=== PATIENT | female | born 1985 | race American Indian/Alaskan Native ===

== ENCOUNTER 2017-01-13 12:34 | Outpatient (CLI) | payer MEDICAID ==
[2017-01-13] MEDS ORDERED: LACTATED RINGERS 1,000 ML IV ONE (14:00)
== END 2017-01-13 14:12 | disposition home or self-care (01) ==
LOC: TRG 12:34
PROVIDERS: ATTEND Obstetrics & Gynecology
DX: Z34.93 Encounter for supervision of normal pregnancy, unspecified, third trimester (principal); Z3A.38 38 weeks gestation of pregnancy
CPT/HCPCS: 59025

== ENCOUNTER 2017-01-18 08:56 | Inpatient (IN) | payer MEDICAID ==
[2017-01-18] MEDS ORDERED: REGLAN IV ONE (09:19)
[2017-01-18] MEDS ORDERED: PEPCID IV ONE (09:19)
[2017-01-18] MEDS ORDERED: BICITRA PO ONE (09:19)
[2017-01-18] MEDS ORDERED: LACTATED RINGERS 1,000 ML IV SCH (10:00)
[2017-01-18] MEDS ORDERED: PITOCin/NS 20 UNIT/1000ML DRIP 20 UNITS/1,000 ML BAG IV SCH ×2 (10:00→17:00)
[2017-01-18] MEDS: LACTATED RINGERS 1,000 ML IV SCH ×3 (10:30→14:31)
[2017-01-18 10:49] LABS: Basophils % (Auto) 0.2 % (0.0-1.8); Eosinophils % (Auto) 0.3 % (0.0-4.3); Hematocrit 27.6 % (30.3-42.9); Hemoglobin 8.8 gm/dl (10.1-14.3); Mean Corpuscular HGB Conc 32 % (30-34); Mean Corpuscular Volume 74 fl (79-97); Platelet Count 182 K/mm3 (140-440); Red Blood Count 3.74 M/mm3 (3.65-5.03); White Blood Count 6.3 K/mm3 (4.5-11.0)
[2017-01-18 10:50] LABS: Mean Corpuscular Hemoglobin 24 pg (28-32); Red Cell Distribution Width 21.9 % (13.2-15.2)
[2017-01-18] MEDS ORDERED: BICITRA PO NR (11:00)
[2017-01-18] MEDS ORDERED: PEPCID IV NR (11:00)
[2017-01-18] MEDS ORDERED: REGLAN IV NR (11:00)
[2017-01-18] MEDS ORDERED: ANCEF/STERILE WATER 2 GM/20 ML 2 GM/20 ML SYRINGE IV NR (11:00)
--- NOTE | 2017-01-18 14:14 | Anesthesia Consultation ---
Anesthesia Consult and Med Hx Date of service: 01/18/17 - Airway Anesthetic Teeth Evaluation: Good ROM Head & Neck: Adequate Mental/Hyoid Distance: Adequate Mallampati Class: Class II Intubation Access Assessment: Probably Good - Pulmonary Exam CTA: Yes - Cardiac Exam Cardiac Exam: RRR - Pre-Operative Health Status ASA Pre-Surgery Classification: ASA2 Proposed Anesthetic Plan: Spinal (has had epidural/spinal on a previous c- section) - Pulmonary Hx Asthma: No COPD: No Hx Pneumonia: No - Cardiovascular System Hx Hypertension: No - Central Nervous System Hx Seizures: No Hx Psychiatric Problems: No - Endocrine Hx Renal Disease: No Hx End Stage Renal Disease: No Hx Hypothyroidism: No Hx Hyperthyroidism: No - Hematic Hx Anemia: No Hx Sickle Cell Disease: No - Other Systems Hx Alcohol Use: No - Additional Comments Anesthesia Medical History Comments: had syphillis in past - not on any drugs currently
[2017-01-18] MEDS ORDERED: ZOFRAN IV PRN ×2 (14:15→16:16)
[2017-01-18] MEDS ORDERED: DILAUDID IV PRN ×3 (14:15→16:16)
--- NOTE | 2017-01-18 14:15 | Anesthesia Day of Surgery ---
Anesthesia Day of Surgery - Day of Surgery Patient Examined: Yes Patient H&P Reviewed: Yes Patient is NPO: Yes (breakfast sandwich at 07:30)
[2017-01-18] MEDS ORDERED: MORPHINE ONE (14:23)
[2017-01-18] MEDS ORDERED: METHERGINE IM ONE (14:24)
[2017-01-18] MEDS ORDERED: ZOFRAN ONE (14:30)
[2017-01-18] MEDS ORDERED: NACL 0.9% IR ONE (16:00)
[2017-01-18] MEDS ORDERED: WATER FOR IRRIG STERILE IR ONE (16:00)
[2017-01-18] MEDS ORDERED: TORADOL IV PRN (16:16)
[2017-01-18] MEDS ORDERED: NARCAN 0.4 MG/1 ML IV PRN (16:16)
[2017-01-18] MEDS ORDERED: TUCKS PAD TP PRN (16:16)
[2017-01-18] MEDS ORDERED: ANUCORT-HC PR PRN (16:16)
[2017-01-18] MEDS ORDERED: TYLENOL PO PRN (16:16)
--- NOTE | 2017-01-18 16:30 | History and Physical Report ---
History of Present Illness Date of examination: 01/18/17 Date of admission: 01/18/17 08:56 Chief complaint: at 39 weeks and 1 day, not in labor. Previous C/section. History of present illness: Patient is a 31 year old , EDC 01/22/17 who is admitted for elective repeat C/section. She denies any contractions, fluid leakage or bleeding per vagina. She reports good movement. She wants permanent sterilization. Past History Past Surgical History: section - Obstetrical History : 5 Para: 2 Number of Pregnancies: 2 Spontaneous Abortions: 2 Number of Living Children: 2 Medications and Allergies Allergies Allergy/AdvReac Type Severity Reaction Status Date / Time No Known Allergies Allergy Unverified 01/13/17 12:35 Home Medications Medication Instructions Recorded Confirmed Last Taken Type Ferrous Sulfate [Feosol 325 MG tab] 325 mg PO TID 01/18/17 01/18/17 1 Day Ago History ~01/17/17 325 mg tab Active Meds: Active Medications Hydromorphone HCl (Dilaudid) 0.5 mg IV Q4H PRN PRN Reason: breakthrough pain > 7/10 Lactated Ringer's (Lactated Ringers) 1,000 mls @ 2,250 mls/hr IV PREOP JEREMIAS Stop: 01/19/17 10:27 Last Admin: 01/18/17 14:31 Dose: 2,250 mls/hr Oxytocin/Sodium Chloride (Pitocin/Ns 20 Unit/1000ml Drip) 20 units in 1,000 mls @ 0 mls/hr IV TITR JEREMIAS PRN Reason: As Directed Ondansetron HCl (Zofran) 4 mg IV Q8H PRN PRN Reason: Nausea And Vomiting - Vital Signs Vital signs: Vital Signs Temp Pulse Resp BP Pulse Ox 97.8 F 85 15 110/58 98 01/18/17 09:45 01/18/17 09:45 01/18/17 09:45 01/18/17 09:45 01/18/17 09:45 Temp Pulse Resp BP Pulse Ox 97.8 F 85 15 110/58 98 01/18/17 09:45 01/18/17 09:45 01/18/17 09:45 01/18/17 09:45 01/18/17 09:45 - Physical Exam Cardiovascular: Normal S1, Normal S2 Lungs: Positive: Clear to auscultation Vulva: both: normal Deep Tendon Reflex Grade: Normal +2 - Obstetrical FHR: category 1 Uterine Contraction Monitor Mode: External Uterine Contraction Pattern: Absent Results Result Diagrams: 01/18/17 09:45 Abnormal lab results 01/18/17 Range/Units 09:45 Hgb 8.8 L (10.1-14.3) gm/dl Hct 27.6 L (30.3-42.9) % MCV 74 L (79-97) fl MCH 24 L (28-32) pg RDW 21.9 H (13.2-15.2) % Lymph # 1.0 L (1.2-5.4) K/mm3 Seg Neutrophils % 77.9 H (40.0-70.0) % All other labs normal. Assessment and Plan - Patient Problems (1) with 39 completed weeks gestation Current Visit: Yes Status: Acute Plan to address problem: Admit to L&D. (2) Previous section Current Visit: Yes Status: Acute Plan to address problem: Admit to L&D. and toco monitoring. Admitting labs. IV fluid. Patient declined . She wants elective repeat C/section. Undesired fertility, desires permanent sterilization. Risks, benefits, and alternatives of the procedure were discussed in detail with the patient which included but not limited to the risks of infection, hemorrhage requiring blood transfusion, injury to the bowel, bladder, and blood vessels, risks of tubal ligation failure which can result in undesired . The patient expressed understanding, her questions were answered, she gave her informed consent. Patient is NPO. She is manager environmental health and safety to the OR. (3) Patient declines vaginal after section () Current Visit: Yes Status: Acute Plan to address problem: For elective repeat C/section. (4) Anemia Current Visit: Yes Status: Acute Qualifiers: Anemia type: iron deficiency
--- NOTE | 2017-01-18 16:50 | Operative Report ---
Operative Report Operative Report: Preoperative diagnosis: 1. SIUP at 39 weeks and 1 day gestation, not in labor. 2. Previous . 3. Declined . 4. Undesired fertility, desires permanent sterilization. Postoperative diagnosis: Same as preoperative diagnosis. Procedure: 1. Repeat Low-transverse section. 2. Bilateral tubal ligation via Framingham method. Surgeon: Dr. Lucas Payable Processor: none. Anesthesia: Spinal. Complications: none. EBL: 600 mL IVF: 1 L of RL Urine: 250 cc clear. Operative findings: A male infant found in an LEA position, delivered at 3:30 PM , Apgars 8 at 1 minutes and 9 at 5 minutes, weight 6 lbs. 9 oz. Procedure details: Risks, benefits, and alternatives of the procedure were discussed in detail with the patient which included but not limited to the risk of infection, hemorrhage requiring blood transfusion, injury to the bowel or bladder and blood vessels, failure of tubal ligation to prevent which can result in undesired . The patient expressed understanding, her questions were answered, and she gave informed consent. Patient was taken to the operating room with an IV fluid infusion Ringer's lactate. In the operating room, she was placed in a sitting position and given spinal anesthesia. Then, she was placed in a dorsal supine position with a leftward tilt. Catherine catheter and Venodyne boots were placed. The abdomen was washed and she was prepared and draped in the usual sterile fashion. After confirming adequate spinal anesthesia, a Pfannenstiel skin incision was made in the lower abdomen using the scalpel at the level of the previous scar which is 2 cm above the pubic symphysis. This incision was carried down to the underlying fascia using the Bovie. The fascia was opened bilaterally in a curvilinear fashion using the Bovie. 2 straight Kocker clamps were used to grasp the upper edge of fascia from which the underlying rectus abdominis muscle was dissected off using the Bovie. A similar procedure was done with the lower edge of the fascia to dissect the underlying rectus abdominis muscle. The muscle was bluntly from the midline by pulling. The parietal peritoneum was grasped with 2 hemostat clamps and entered sharply using Metzenbaum scissors. A quick survey of the anatomy revealed a gravid uterus, normal fallopian tubes and ovaries bilaterally. A bladder flap was created.Watson' O retractor was placed at the incision for proper visualization. Then, a low transverse incision was made in the lower uterine segment using the scalpel and extended bilaterally using bandage scissors. The amniotic sac was ruptured. There was copious amount of clear amniotic fluid. The infant was found in an LEA position. The head was delivered atraumatically and bulb suction of the mouth and nose was performed. This was followed by the delivery of the shoulders and the rest of body atraumatically. The cord was clamped 2 and cut and the infant was handed off to the awaiting [employer] specialist. The was a male, delivered at 3:30 PM, Apgars 8 at 1 minutes and 9 at 5 minutes, weight 6 lbs. 9 oz. Cord blood was collected. The placenta was delivered manually and it was complete with a three-vessel cord. The uterine incision was repaired in a running locked fashion using 0 Vicryl sutures. A second layer of imbrication was placed. Attention was turned to the left fallopian tube which was grasped with Sam clamps forming a knucle which was tied with 0 chromic suture x 2 and a segment was resected and sent to pathology . A similar procedure was done with the right fallopian tube where a segment was resected and sent to pathology. The gutters were cleaned of clots and debris using lap sponges. After confirming adequate hemostasis, the instruments were removed from the abdomen. The rectus abdominis muscle was reapproximated using interrupted stitches of 0 Vicryl sutures. The fascia was closed in running fashion using 0 Vicryl sutures. The skin was closed with antonio. Sterile dressing was placed. The counts of laps, sponges, and instruments were correct 2. The patient tolerated the procedure well. She was taken to the recovery room in stable condition.
[2017-01-18] MEDS ORDERED: SODIUM CHLORIDE FLUSH SYRINGE 10 ML IV NR (17:00)
[2017-01-19] MEDS ORDERED: D5LR 1,000 ML IV ONE (03:45)
[2017-01-19] MEDS ORDERED: D5LR 1,000 ML IV SCH (04:00)
[2017-01-19] MEDS ORDERED: BENADRYL IV PRN (04:40)
[2017-01-19 05:43] LABS: Hematocrit 27.5 % (30.3-42.9); Hemoglobin 8.8 gm/dl (10.1-14.3)
[2017-01-19] MEDS: PERCOCET 5/325 PO PRN ×3 (11:29→22:57)
--- NOTE | 2017-01-19 15:03 | Progress Note ---
Assessment and Plan - Patient Problems (1) with 39 completed weeks gestation Current Visit: Yes Status: Acute (2) Anemia Current Visit: Yes Status: Acute Qualifiers: Anemia type: iron deficiency Plan to address problem: Iron sulfate. Monitor H/H. (3) delivery delivered Current Visit: Yes Status: Acute Plan to address problem: Routine post op order. Encourage ambulation. Subjective - Subjective Date of service: 01/19/17 Principal diagnosis: S/P repeat C/section Interval history: Patient is S/P repeat C/section, POD #1. She denies any complaint. She has been tolerating regular diet and ambulating well. She denies any dizziness or palpitation. Objective - Vital Signs Latest vital signs: Vital Signs Temp Pulse Resp BP BP BP Pulse Ox 01/19/17 12:20 98.5 F 85 18 120/80 01/19/17 08:20 98.8 F 95 H 18 139/87 01/19/17 06:16 85 131/90 01/19/17 01:52 98.4 F 78 20 143/93 98 01/18/17 22:25 97.4 F L 83 20 151/90 100 01/18/17 21:04 97.4 F L 84 20 151/90 97 01/18/17 17:49 98.0 F 73 20 145/95 97 01/18/17 17:25 97.8 F 01/18/17 16:20 97.8 F 75 12 128/82 99 Intake and Output 01/18/17 01/19/17 01/19/17 23:59 07:59 15:59 Intake Total 1600 480 240 Output Total 650 1000 1500 Balance 950 -520 -1260 Intake: IV 1600 Oral 480 240 Output: Urine 350 1000 1500 Void 1000 1500 Emesis 300 Other: Total, Intake Amount 480 120 Total, Output Amount 200 1000 700 # Voids Void 1 # Bowel Movements 0 Estimated Blood Loss 600 - Exam Cardiovascular: Present: Normal S1, Normal S2 Lungs: Present: Clear to auscultation Deep Tendon Reflex Grade: Normal +2 - Labs Labs: Abnormal lab results 01/19/17 Range/Units 05:25 Hgb 8.8 L (10.1-14.3) gm/dl Hct 27.5 L (30.3-42.9) %
[2017-01-19] MEDS ORDERED: SENOKOT PO PRN (16:16)
[2017-01-19] MEDS: MYLICON PO PRN (16:58)
[2017-01-19] MEDS: MOTRIN PO PRN (18:38)
[2017-01-20] MEDS: PERCOCET 5/325 PO PRN ×3 (05:06→18:34)
[2017-01-20] MEDS ORDERED: BOOSTRIX IM ONE (06:00)
--- NOTE | 2017-01-20 10:31 | Progress Note ---
Assessment and Plan A: POD #2 Mild elevated blood pressures Asymptomatic Anemia P: Follow Routine PostOp Orders Infed 100mg IM x 1 Dose Continue PO FESO4 Subjective - Subjective Principal diagnosis: S/P repeat C/section Patient reports: appetite normal, voiding normally, pain well controlled, flatus , ambulating normally, other (Denies HAs, visual changes, dizziness, fatigue) : doing well Objective - Vital Signs Latest vital signs: Vital Signs Temp Pulse Resp BP BP Pulse Ox 01/20/17 08:54 98.4 F 76 18 139/89 100 01/20/17 00:45 98.6 F 85 20 124/81 01/19/17 18:35 134/89 01/19/17 18:33 134/92 01/19/17 16:10 98.9 F 86 18 159/99 01/19/17 12:20 98.5 F 85 18 120/80 Intake and Output 01/19/17 01/20/17 01/20/17 22:59 06:59 14:59 Intake Total 360 360 Output Total 600 Balance -240 360 Intake: Oral 360 Intake, Free Water 360 Output: Urine 600 Void 600 Other: Total, Intake Amount 120 Total, Output Amount 600 # Voids Void 1 - Exam Breasts: Present: normal Cardiovascular: Present: Regular rate Lungs: Present: Clear to auscultation, Normal air movement Abdomen: Present: normal appearance, soft, normal bowel sounds Uterus: Present: normal, firm, fundal height below umbilicus Extremities: Present: normal Incision: Present: normal, dry, intact
[2017-01-20] MEDS: COLACE PO SCH ×2 (11:30→21:24)
[2017-01-20] MEDS ORDERED: INFED IM NR (11:30)
[2017-01-20] MEDS ORDERED: Fluarix Quad 2017-2018(36 MOS+ IM ONE (12:00)
[2017-01-20] MEDS ORDERED: FEOSOL PO SCH (14:00)
[2017-01-20] MEDS: MYLICON PO PRN (21:23)
[2017-01-20] MEDS: MOTRIN PO PRN (21:24)
[2017-01-21] MEDS: PERCOCET 5/325 PO PRN ×2 (03:34→12:18)
[2017-01-21 10:49] LABS: Hematocrit 25.2 % (30.3-42.9); Hemoglobin 8.1 gm/dl (10.1-14.3); Mean Corpuscular HGB Conc 32 % (30-34); Mean Corpuscular Volume 75 fl (79-97); Platelet Count 186 K/mm3 (140-440); Red Blood Count 3.37 M/mm3 (3.65-5.03); White Blood Count 5.8 K/mm3 (4.5-11.0)
[2017-01-21 10:51] LABS: Mean Corpuscular Hemoglobin 24 pg (28-32); Red Cell Distribution Width 20.8 % (13.2-15.2)
[2017-01-21 11:08] LABS: Alanine Aminotransferase 8 units/L (7-56); Lactate Dehydrogenase 265 units/L (91-180); Uric Acid 4.6 mg/dL (3.5-7.6)
[2017-01-21] MEDS: COLACE PO SCH (11:09)
[2017-01-21 13:27] LABS: Bacteria,Urine 1+ /HPF (Negative); Bilirubin,Urine NEG (Negative); Blood,Urine LG (Negative); Ketones,Urine NEG (Negative); Leukocyte Esterase,Urine LG (Negative); Mucus,Urine FEW /HPF; Nitrite,Urine NEG (Negative); RBC,Urine > 182.0 /HPF (0.0-6.0)
--- NOTE | 2017-01-21 13:54 | Discharge Summary ---
Providers - Providers Date of Admission: 01/18/17 08:56 Date of discharge: 01/21/17 Attending physician: JOSE ESTEBAN MD Primary care physician: JOSE ESTEBAN MD Hospitalization Reason for admission: section Delivery: Procedure: repeat low transverse Discharge diagnosis: IUP at term delivered Condition at discharge: Stable Disposition: DC-[id number] TO HOME OR SELFCARE - Discharge Diagnoses (1) with 39 completed weeks gestation Status: Acute (2) Anemia Status: Acute Qualifiers: Anemia type: iron deficiency (3) delivery delivered Status: Acute Plan - Provider Discharge Summary Activity: no sex for 6 weeks, no heavy lifting 4 weeks, no strenuous exercise Diet: routine Instructions: routine Additional instructions: [] Smoking cessation referral if applicable(refer to patient education folder for contact #) [] Refer to [facility] Booklet Call your doctor immediately for: * Fever > 100.5 * Heavy vaginal bleeding ( >1 pad per hour) * Severe persistent headache * Shortness of breath * Reddened, hot, painful area to leg or breast * Drainage or odor from incision. * Keep incision clean and dry at all times and follow doctor's instructions regarding bathing/showering - Follow up plan Follow up: JOSE ESTEBAN MD [Primary Care Provider] - 7 Days
--- NOTE | 2017-01-21 13:59 | Progress Note ---
Assessment and Plan - Patient Problems (1) with 39 completed weeks gestation Current Visit: Yes Status: Acute Plan to address problem: . (2) Anemia Current Visit: Yes Status: Acute Qualifiers: Anemia type: iron deficiency Plan to address problem: Iron sulfate. Monitor H/H. (3) delivery delivered Current Visit: Yes Status: Acute (4) Gestational HTN Current Visit: Yes Status: Acute Plan to address problem: Patient has been asymptomatic. Toxemia labs were normal. Labetolol given. Patient was given Rx to continue labetolol. Will continue to monitor BP and if stable, patient can be discharged home with precautions. Patient was advised to return to the hospital if she develops any NERI, visual changes, or RUQ pain. She will F/U in office in 2-3 days. Subjective - Subjective Date of service: 01/21/17 Principal diagnosis: S/P repeat C/section Interval history: Patient is S/P repeat C/section, POD #3. She had elevated BP since last night. Her most recent bP was 138/96. Toxemia labs were normal. She denies any complaint. She has been tolerating regular diet and ambulating well. She denies any dizziness or palpitation. Objective - Vital Signs Latest vital signs: Vital Signs Temp Pulse Resp BP BP Pulse Ox 01/21/17 08:24 98.4 F 79 18 138/96 97 01/20/17 23:47 98.3 F 81 16 130/92 99 01/20/17 18:34 18 01/20/17 16:30 98.3 F 80 18 123/87 123/87 98 Intake and Output 01/20/17 01/21/17 01/21/17 23:59 07:59 15:59 Intake Total 360 800 Balance 360 800 Intake: Oral 360 800 Other: Total, Intake Amount 360 800 # Voids Void 1 4 - Exam Cardiovascular: Present: Normal S1, Normal S2 Lungs: Present: Clear to auscultation Deep Tendon Reflex Grade: Normal +2 - Labs Labs: Abnormal lab results 01/21/17 01/21/17 01/21/17 Range/Units 10:30 10:30 12:36 RBC 3.37 L (3.65-5.03) M/mm3 Hgb 8.1 L (10.1-14.3) gm/dl Hct 25.2 L (30.3-42.9) % MCV 75 L (79-97) fl MCH 24 L (28-32) pg RDW 20.8 H (13.2-15.2) % Creatinine 0.5 L (0.7-1.2) mg/dL Lactate Dehydrogenase 265 H (91-180) units/L Urine pH 8.0 H (5.0-7.0) Urine WBC (Auto) 92.0 H (0.0-6.0) /HPF U Epithel Cells (Auto) 51.0 H (0-13.0) /HPF
[2017-01-21] MEDS ORDERED: NORMODYNE PO SCH (14:00)
[2017-01-21 17:53] VITALS: BP 135/88
== END 2017-01-21 17:30 | disposition home or self-care (01) | DRG 765 ==
LOC: APU 08:56 → OB 18:03
PROVIDERS: ADMIT Obstetrics & Gynecology; ATTEND Obstetrics & Gynecology
PROC: 10D00Z1 Extraction of Products of Conception, Low, Open Approach (ICD-10-PCS; principal; 2017-01-18)
PROC: 0UT70ZZ Resection of Bilateral Fallopian Tubes, Open Approach (ICD-10-PCS; 2017-01-18)
PROC: 3E0234Z Introduction of Serum, Toxoid and Vaccine into Muscle, Percutaneous Approach (ICD-10-PCS; 2017-01-20)
DX: O34.211 Maternal care for low transverse scar from previous cesarean delivery (principal); O13.4 Gestational [pregnancy-induced] hypertension without significant proteinuria, complicating childbirth; O99.02 Anemia complicating childbirth; D64.9 Anemia, unspecified; Z3A.39 39 weeks gestation of pregnancy; Z37.0 Single live birth; Z30.2 Encounter for sterilization; Z23 Encounter for immunization; Z31.84 Encounter for fertility preservation procedure
CPT/HCPCS: 36415; 81001; 82565; 83615; 84450; 84460; 84550; 85014; 85018; 85025; 85027; 86850; 86900; 86901; 88302; 90471; 90686; 90715; G0008; J0690; J1200; J1750; J1885; J2210; J2270; J2405; J2590; J2765; J7120; J7121

== ENCOUNTER 2017-01-25 11:37 | Outpatient (CLI) | payer MEDICAID ==
[2017-01-25 12:01] LABS: Hematocrit 28.5 % (30.3-42.9); Hemoglobin 9.2 gm/dl (10.1-14.3); Mean Corpuscular HGB Conc 32 % (30-34); Mean Corpuscular Volume 74 fl (79-97); Platelet Count 276 K/mm3 (140-440); Red Blood Count 3.83 M/mm3 (3.65-5.03); White Blood Count 5.5 K/mm3 (4.5-11.0)
[2017-01-25 12:07] LABS: Bacteria,Urine 1+ /HPF (Negative); Bilirubin,Urine NEG (Negative); Blood,Urine LG (Negative); Ketones,Urine NEG (Negative); Leukocyte Esterase,Urine LG (Negative); Mucus,Urine FEW /HPF; Nitrite,Urine NEG (Negative)
[2017-01-25 12:10] LABS: Mean Corpuscular Hemoglobin 24 pg (28-32); Red Cell Distribution Width 21.3 % (13.2-15.2)
[2017-01-25 12:19] LABS: Alanine Aminotransferase 20 units/L (7-56); Albumin 3.6 g/dL (3.9-5); Albumin/Globulin Ratio 1.1 %; Alkaline Phosphatase 81 units/L (35-129); Anion Gap 20 mmol/L; BUN/Creatinine Ratio 18; Blood Urea Nitrogen 9 mg/dL (7-17); Calcium 8.7 mg/dL (8.4-10.2); Carbon Dioxide 23 mmol/L (22-30); Chloride 101.4 mmol/L (98-107); Glucose 85 mg/dL (65-100); Lactate Dehydrogenase 355 units/L (91-180); Potassium 4.2 mmol/L (3.6-5.0); Sodium 140 mmol/L (137-145); Total Protein 6.8 g/dL (6.3-8.2); Uric Acid 5.6 mg/dL (3.5-7.6)
== END 2017-01-25 11:38 | disposition home or self-care (01) ==
LOC: LAB 11:37
PROVIDERS: ATTEND Obstetrics & Gynecology
DX: O13.3 Gestational [pregnancy-induced] hypertension without significant proteinuria, third trimester (principal); O48.0 Post-term pregnancy; Z3A.40 40 weeks gestation of pregnancy
CPT/HCPCS: 36415; 80053; 81001; 83615; 84550; 85027

== ENCOUNTER 2017-11-29 17:10 | Emergency (ER) | payer MEDICAID ==
[2017-11-29 17:21] VITALS: BP 140/83
[2017-11-29 19:07] LABS: Bacteria,Urine 2+ /HPF (Negative); Bilirubin,Urine NEG (Negative); Blood,Urine SM (Negative); Color,Urine Amber (Yellow); Mucus,Urine 3+ /HPF
[2017-11-29 19:08] LABS: HCG Qualitative,Urine Negative (Negative)
[2017-11-29] MEDS ORDERED: NACL 0.9% 1000 ML 1,000 ML IV ONE (19:12)
[2017-11-29] MEDS ORDERED: TORADOL IV ONE (19:12)
[2017-11-29 20:02] LABS: Basophils % (Auto) 0.5 % (0.0-1.8); Eosinophils % (Auto) 1.1 % (0.0-4.3); Hematocrit 32.2 % (30.3-42.9); Hemoglobin 10.2 gm/dl (10.1-14.3); Lymphocytes # (Auto) 0.8 K/mm3 (1.2-5.4); Lymphocytes % (Auto) 26.9 % (13.4-35.0); Mean Corpuscular HGB Conc 32 % (30-34); Mean Corpuscular Volume 76 fl (79-97); Monocytes # (Auto) 0.3 K/mm3 (0.0-0.8); Monocytes % (Auto) 10.9 % (0.0-7.3); Platelet Count 212 K/mm3 (140-440); Red Blood Count 4.25 M/mm3 (3.65-5.03); Red Cell Distribution Width 17.9 % (13.2-15.2)
[2017-11-29 20:05] LABS: Mean Corpuscular Hemoglobin 24 pg (28-32)
[2017-11-29 20:26] LABS: Alanine Aminotransferase 8 units/L (7-56); Albumin 4.4 g/dL (3.9-5); BUN/Creatinine Ratio 23; Blood Urea Nitrogen 14 mg/dL (7-17); Calcium 8.8 mg/dL (8.4-10.2); Hemolysis Index 3; Lipase 19 units/L (13-60)
[2017-11-29 20:30] LABS: Bilirubin,Direct < 0.2 mg/dL (0-0.2)
--- NOTE | 2017-11-29 21:03 | Emergency Department Report ---
ED Abdominal Pain HPI - General Chief Complaint: Abdominal Pain Stated Complaint: LOWER ABD PAIN/SWOLLEN Time Seen by Provider: 11/29/17 19:11 Source: patient Mode of arrival: Ambulatory Limitations: No Limitations - History of Present Illness Initial Comments: This is a 32-year-old female nontoxic, well nourished in appearance, no acute signs of distress presents to the ED with c/o of abdominal pain 1 week. Patient denies any nausea or vomiting. Patient describes abdominal pain as cramping and aching with level of 3/10 in lower abdominal area. Patient denies chest pain, short of breath, fever, chills, headache, stiff neck, numbness or tingling. Patient denies any urinary symptoms. Patient denies any diarrhea or constipation. Patient denies any recent travels. Patient denies any allergies or PMH. MD Complaint: abdominal pain -: week(s) (1) Location: LLQ, RLQ Radiation: none Migration to: no migration Severity: mild Severity scale (0 -10): 3 Quality: aching Consistency: constant Improves With: nothing Worsens With: nothing Associated Symptoms: denies other symptoms. denies: nausea, vomiting, diarrhea , fever, chills, constipation, dysuria, hematemesis, hematochezia, melena, hematuria, anorexia, syncope - Related Data Home Medications Medication Instructions Recorded Confirmed Last Taken Ferrous Sulfate [Feosol 325 MG tab] 325 mg PO TID 01/18/17 01/18/17 1 Day Ago ~01/17/17 325 mg tab Previous Rx's Medication Instructions Recorded Last Taken Type Ibuprofen [Motrin] 600 mg PO Q8H PRN #20 tablet 11/29/17 Unknown Rx Sulfamethoxazole/Trimethoprim 1 each PO BID #14 tablet 11/29/17 Unknown Rx [Bactrim DS TAB] Allergies Allergy/AdvReac Type Severity Reaction Status Date / Time No Known Allergies Allergy Verified 11/29/17 17:22 ED Review of Systems ROS: Stated complaint: LOWER ABD PAIN/SWOLLEN Other details as noted in HPI Constitutional: denies: chills, fever Eyes: denies: eye pain, eye discharge, vision change ENT: denies: ear pain, throat pain Respiratory: denies: cough, shortness of breath, wheezing Cardiovascular: denies: chest pain, palpitations Endocrine: no symptoms reported Gastrointestinal: abdominal pain. denies: nausea, vomiting, diarrhea Genitourinary: denies: urgency, dysuria, discharge Musculoskeletal: denies: back pain, joint swelling, arthralgia Skin: denies: rash, lesions Neurological: denies: headache, weakness, paresthesias Psychiatric: denies: anxiety, depression Hematological/Lymphatic: denies: easy bleeding, easy bruising ED Past Medical Hx - Past Medical History Previous Medical History?: No Hx Hypertension: No Hx Congestive Heart Failure: No Hx Diabetes: No Hx Deep Vein Thrombosis: No Hx Renal Disease: No Hx Sickle Cell Disease: No Hx Seizures: No Hx Asthma: No Hx COPD: No Hx HIV: No - Surgical History Additional Surgical History: x 3 - Social History Smoking Status: Never Smoker Substance Use Type: None - Medications Home Medications: Home Medications Medication Instructions Recorded Confirmed Last Taken Type Ferrous Sulfate [Feosol 325 MG tab] 325 mg PO TID 01/18/17 01/18/17 1 Day Ago History ~01/17/17 325 mg tab Ibuprofen [Motrin] 600 mg PO Q8H PRN #20 tablet 11/29/17 Unknown Rx Sulfamethoxazole/Trimethoprim 1 each PO BID #14 tablet 11/29/17 Unknown Rx [Bactrim DS TAB] ED Physical Exam - General Limitations: No Limitations General appearance: alert, in no apparent distress - Head Head exam: Present: atraumatic, normocephalic - Eye Eye exam: Present: normal appearance Pupils: Present: normal accommodation - ENT ENT exam: Present: normal exam, mucous membranes moist - Neck Neck exam: Present: normal inspection, full ROM. Absent: tenderness, meningismus, lymphadenopathy - Respiratory Respiratory exam: Present: normal lung sounds bilaterally. Absent: respiratory distress, wheezes, rales, rhonchi, stridor, chest wall tenderness, accessory muscle use, decreased breath sounds, prolonged expiratory - Cardiovascular Cardiovascular Exam: Present: regular rate, normal rhythm, normal heart sounds. Absent: irregular rhythm, systolic murmur, diastolic murmur, rubs, gallop - GI/Abdominal GI/Abdominal exam: Present: soft, tenderness (RLQ/LLQ), normal bowel sounds. Absent: distended, guarding, rebound, rigid, diminished bowel sounds - Expanded GI/Abdominal Exam Expanded GI/Abdominal exam: Absent: psoas sign, Sherwood's sign, Rovsing's sign, tenderness at Mcburney's Point, ascites - Rectal Rectal exam: Present: deferred - Extremities Exam Extremities exam: Present: normal inspection, full ROM, normal capillary refill. Absent: tenderness - Back Exam Back exam: Present: normal inspection, full ROM. Absent: tenderness, CVA tenderness (R), CVA tenderness (L), muscle spasm, paraspinal tenderness, vertebral tenderness, rash noted - Neurological Exam Neurological exam: Present: alert, oriented X3, normal gait - Psychiatric Psychiatric exam: Present: normal affect, normal mood - Skin Skin exam: Present: warm, dry, intact, normal color. Absent: rash ED Course Vital Signs 11/29/17 11/29/17 11/29/17 17:16 19:45 19:47 Temperature 99.7 F H Pulse Rate 103 H Respiratory 18 16 16 Rate Blood Pressure 140/83 O2 Sat by Pulse 95 Oximetry - Reevaluation(s) Reevaluation #1: 11/29/17 21:05 Patient is speaking in full sentences with no signs of distress noted. ED Medical Decision Making - Lab Data Result diagrams: 11/29/17 19:41 11/29/17 19:41 - Medical Decision Making This is a 32-year-old female that presents with abdominal pain and UTI. Patient is stable and was examined by me. There is slight abdominal tenderness. Negative signs of symptoms of appendicitis. Labs obtained. UA obtained. US of abdomen obtained and dictated by the radiologist. Patient is notified of the report with no questions noted by the patient. Vital signs are stable prior to discharge. PAtient received 1L normal saline and toradol in the ED which patient stated symptoms has resolved and subsided. A by mouth challenge has been obtained and patient tolerated well with no nausea vomiting. Patient was notified of strict precautions of appendicitis symptoms and to return to the ED if symptoms occurs as soon as possible. Patient was also instructed to Follow- up with a primary care doctor in 3-5 days or if symptoms worsen and continue return to emergency room as soon as possible. At time of discharge, the patient does not seem toxic or ill in appearance. No acute signs of distress noted. Patient agrees to discharge treatment plan of care. No further questions noted by the patient. Critical care attestation.: If time is entered above; I have spent that time in minutes in the direct care of this critically ill patient, excluding procedure time. ED Disposition Clinical Impression: Abdominal pain Qualifiers: Abdominal location: right lower quadrant Qualified Code(s): R10.31 - Right lower quadrant pain UTI (urinary tract infection) Qualifiers: Urinary tract infection type: acute cystitis Hematuria presence: without hematuria Qualified Code(s): N30.00 - Acute cystitis without hematuria Disposition: TO HOME OR SELFCARE Is pt being admited?: No Does the pt Need Aspirin: No Condition: Stable Instructions: Urinary Tract Infection in Women (ED), Abdominal Pain (ED) Additional Instructions: Follow-up with a primary care doctor in 3-5 days or if symptoms worsen and continue return to emergency room as soon as possible. Prescriptions: Ibuprofen [Motrin] 600 mg PO Q8H PRN #20 tablet PRN Reason: Pain Sulfamethoxazole/Trimethoprim [Bactrim DS TAB] 1 each PO BID #14 tablet Referrals: PRIMARY CAREMD [Primary Care Provider] - 3-5 Days WALT ASIF MD [Staff Physician] - 3-5 Days [facility] [Outside] - 3-5 Days [facility] [Outside] - 3-5 Days Forms: Work/School Release Form(ED)
--- NOTE | 2017-11-29 21:23 | Cat Scan Report ---
FINAL REPORT PROCEDURE: CT ABDOMEN PELVIS W CON TECHNIQUE: Computerized axial tomography of the abdomen and pelvis was performed after the IV injection of iodinated nonionic contrast. HISTORY: abd pain COMPARISON: No prior studies are available for comparison. FINDINGS: Liver, spleen, pancreas and adrenal glands are within normal limits. Bilateral kidneys demonstrate uniform enhancement without hydronephrosis. Aorta is of normal caliber. There is no free fluid or free air. Gallbladder is unremarkable. Small bowel loops are within normal limits. Moderate degree residual stool is noted. Appendix is normal. Vertebral height is normal. Multiple nonenlarged lymph nodes are noted in bilateral inguinal regions. Mild degree subcutaneous fat induration is identified in the right inguinal region. IMPRESSION: No acute intra-abdominal or pelvic pathology Mild degree fat induration in the right inguinal region may represent lymphadenitis.
== END 2017-11-29 21:40 | disposition home or self-care (01) ==
LOC: ED 17:10
DX: R10.31 Right lower quadrant pain (principal); N39.0 Urinary tract infection, site not specified
CPT/HCPCS: 36415; 74177; 80048; 80074; 81001; 81025; 83690; 85025; 96374; 99284; J1885; J7030; Q9967

== ENCOUNTER 2020-03-10 16:12 | Emergency (ER) | payer MEDICAID ==
[2020-03-10 16:39] VITALS: BP 135/82
[2020-03-10 17:32] LABS: HCG Qualitative,Urine Negative (Negative)
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
== END 2020-03-10 18:11 | disposition home or self-care (01) ==
LOC: ED 16:12
DX: R51.9 Headache, unspecified (principal); H53.8 Other visual disturbances; Z98.890 Other specified postprocedural states; Z79.1 Long term (current) use of non-steroidal anti-inflammatories (NSAID); Z79.899 Other long term (current) drug therapy
CPT/HCPCS: 70450; 81025